=== PATIENT | female | born 1960 | race African-American/Black ===

== ENCOUNTER 2016-12-06 08:15 | Emergency (ER) | payer BC ==
[~2016-12-06] VITALS: Ht 170.2 cm; Wt 65.8 kg
[~2016-12-06 08:15] MED LIST: ASPIR 8181 MG ORAL; NORCO 5-325 TA1 EAC1 ORAL; SILVADENE CREAM50 GM TOP
--- NOTE | 2016-12-06 08:51 | Emergency Room Report ---
History of Present Illness General Chief Complaint: Pain Source: Patient, Medical Record Present Illness HPI The patient presents after slipping and falling on December 04 taking her mother home. She fell forward and landed on her right side. She also scraped the inside her for a left elbow. She feels pain in her knee and also in her elbow on the right-hand side. She's able to ambulate however she feels a clicking and some swelling medial side of her right knee. In addition to that she had some pain extending and pronating her hands in the elbow region. She took 2 Aleve at 7 PM last night. These have helped with the pain. Denies any numbness. Pain 7/10, worse when walking or using R hand. No other somatic complaints. Allergies: Coded Allergies: [place] (Verified Allergy, Mild, Hives, 12/11/12) PENICILLINS (Verified Allergy, Hives, 12/11/12) Patient History Past Medical History: see triage record Social History: Denies: smoking Social History Narrative bible study Reviewed Nursing Documentation: PMH: Agreed, PSxH: Agreed Nursing Documentation-PM Past Medical History: No History, Except For Hx Hypertension: Yes Review of Systems All Other Systems: negative except mentioned in HPI Physical Exam Vital Signs Date Time Temp Pulse Resp B/P Pulse Ox O2 Delivery O2 Flow Rate FiO2 12/06/16 08:19 98.2 92 16 151/90 98 Room Air Sp02 EP Interpretation: reviewed, normal General Appearance: well appearing, no apparent distress Head: normocephalic, atraumatic Eyes: bilateral eye PERRL, bilateral eye normal inspection ENT: hearing grossly normal, normal voice, moist mucus membranes Neck: full range of motion, supple, no bony tend Respiratory: chest non-tender, lungs clear, no respiratory distress, speaking full sentences Cardiovascular #1: regular rate, rhythm Cardiovascular #2: 2+ radial (R), 2+ radial (L), 2+ dorsalis pedis (R), 2+ dorsalis pedis (L) Gastrointestinal: normal bowel sounds, non tender Musculoskeletal: digits/nails normal, gait/station normal, normal range of motion, no calf tenderness, pelvis stable, other - tenderness radial head R, shoulder and wrist not tender. R knee with medial ligament laxity (minimal) small effusion, no drawer, Appies negative Neurologic: alert, motor strength/tone normal, sensory intact, cerebellar normal, other - distal neuro intact Psychiatric: mood/affect normal Skin: abrasions - L medial elbow Medical Decision Making Diagnostic Impression: Primary Impression: Contusion of right elbow Qualified Codes: S50.01XA - Contusion of right elbow, initial encounter Additional Impressions: Sprain of right knee Qualified Codes: S83.411A - Sprain of medial collateral ligament of right knee , initial encounter Abrasion ER Course Patient presents after falling. She has knee pain and elbow pain on the right- hand side. Differential includes fracture, sprain, strain, contusion. [place] ankle rules are against fracture, though will obtain x-rays due to clicking. The radial head this probably bruised however an x-ray will be obtained to exclude fracture. Motrin 600 mg be given for analgesia. Patient improved with treatment. Fede applied by RNs - rewrapped by me. Tension excellent and neurovasc normal. Patient stable for outpatient observation and treatment. Other X-Ray Diagnostic Results X-Ray ordered: knee (3) elbow (3) EP Interpretation: Yes Interpretation: no fractures, no dislocation, no soft tissue swelling, other - djd Indication: Pain Impression: No acute disease Interpreting ER Provider: Electronically signed by Gustavo Kevin MD Last Vital Signs Date Time Temp Pulse Resp B/P Pulse Ox O2 Delivery O2 Flow Rate FiO2 12/06/16 09:46 73 18 144/96 98 Room Air 12/06/16 09:46 97.3 Status: improved Disposition: HOME, SELF-CARE Condition: Improved Scripts Bacitracin (Bacitracin) 28.4 Gm Oint...g. 1 APPLIC TOPIC BID, #10 GM Prov: Gustavo Kevin M.D. 12/06/16 Hydrocodone Bit/Acetaminophen 5-325* (NORCO 5-325*) 1 Each Tablet 1 TAB ORAL Q6H Y for For Pain, #10 TAB 0 Refills Prov: Gustavo Kevin M.D. 12/06/16 Ibuprofen* (MOTRIN*) 600 Mg Tablet 600 MG ORAL Q6H Y for For Pain, #20 TAB Prov: Gustavo Kevin M.D. 12/06/16 Referrals: NON PHYSICIAN (PCP) Gustavo Kevin M.D. Dec 06, 2016 08:50
[2016-12-06] MEDS ORDERED: IBUPROFEN600 MG ORAL (09:19)
[2016-12-06] MEDS ORDERED: NORCO 5-325 TA1 EACH ORAL (09:19)
[2016-12-06] MEDS ORDERED: BACITRACIN15 GM TOPIC (09:21)
[2016-12-06] MEDS ORDERED: HYDROCHLOROTHIA25 MG ORAL (09:31)
[2016-12-06] MEDS ORDERED: LOSARTAN POTASS50 MG ORAL (09:31)
[2016-12-06 09:46] VITALS: BP 144/96
--- NOTE | 2016-12-06 10:57 | Diagnostic Imaging Report ---
Indication: Pain Findings: 3 views of the right elbow were obtained. No acute fractures, malalignment, erosions or periostitis are identified. Bone mineralization is within normal limits. Soft tissues are unremarkable. Some marginal spurs are noted. Impression: No acute injury. Mild osteoarthritis
--- NOTE | 2016-12-06 10:58 | Diagnostic Imaging Report ---
Indication: Pain 3 views of the right knee were obtained. Findings: No acute fracture, malalignment, or joint effusion are identified. Marginal spurs demonstrated. Some joint space narrowing is present. There maybe a small joint effusion. Impression: Osteoarthritis
== END 2016-12-06 09:40 | disposition home or self-care (01) ==
LOC: EMR 08:45
DX: S50.01XA Contusion of right elbow, initial encounter (principal); S83.91XA Sprain of unspecified site of right knee, initial encounter; S50.312A Abrasion of left elbow, initial encounter; W19.XXXA Unspecified fall, initial encounter; Y92.89 Other specified places as the place of occurrence of the external cause; I10 Essential (primary) hypertension; M19.021 Primary osteoarthritis, right elbow; M17.11 Unilateral primary osteoarthritis, right knee
CPT/HCPCS: 99284

== ENCOUNTER 2019-01-18 09:19 | Emergency (ER) | payer BC ==
[~2019-01-18] VITALS: Ht 170.2 cm; Wt 83.9 kg
[~2019-01-18 09:19] MED LIST changes: +BACITRACIN15 GM TOPIC; +HYDROCHLOROTHIA25 MG ORAL; +IBUPROFEN600 MG ORAL; +LOSARTAN POTASS50 MG ORAL; +NORCO 5-325 TA1 EACH ORAL
[2019-01-18 09:41] VITALS: BP 153/93
--- NOTE | 2019-01-18 09:42 | NUR ---
ED Nurse Note: pt walked in due to sore throat started this morning. pt stated she is drinking coffee and started to feel something was stucked. pt able to talk, denies dypsnea. pt able to drink water. will continue to monitor.
--- NOTE | 2019-01-18 09:51 | Emergency Room Report ---
History of Present Illness General Chief Complaint: Sore Throat Source: Patient Present Illness HPI Patient presents with complaints of discomfort to the right side of her throat Reports that after drinking coffee earlier today she felt a discomfort to the lower part of her throat Denies any headache Denies any cough denies any chest pain or shortness of breath denies any change in voice does not recall choking on any food particles Patient had also an egg sausage sandwich prior to drinking the coffee however does not recall any discomfort after eating the food At this time while drinking water reports that she feels somewhat improved and almost fully resolved Allergies: Coded Allergies: [place] (Verified Allergy, Mild, Hives, 12/11/12) [place] (Verified Allergy, Hives, 12/11/12) Patient History Past Medical History: see triage record Last Menstrual Period: no period Reviewed Nursing Documentation: PMH: Agreed; PSxH: Agreed Nursing Documentation-PMH Past Medical History: No Stated History Hx Hypertension: Yes Review of Systems All Other Systems: negative except mentioned in HPI Physical Exam Vital Signs Date Time Temp Pulse Resp B/P (MAP) Pulse Ox O2 Delivery O2 Flow Rate FiO2 01/18/19 09:27 98.2 96 21 153/93 (113) 96 Room Air Sp02 EP Interpretation: reviewed, normal General Appearance: well appearing, no apparent distress Head: normocephalic, atraumatic Eyes: bilateral eye PERRL, bilateral eye EOMI ENT: hearing grossly normal, normal pharynx, no angioedema, normal voice, TMs + canals normal, uvula midline Neck: full range of motion, supple, no meningismus, no bony tend Respiratory: lungs clear, normal breath sounds, no rhonchi, no respiratory distress, no retraction, no accessory muscle use Cardiovascular #1: normal peripheral pulses, regular rate, rhythm, no edema, no gallop, no JVD, no murmur Gastrointestinal: normal bowel sounds, non tender, soft, no mass, no organomegaly, non-distended, no guarding, no hernia, no pulsatile mass, no rebound Musculoskeletal: normal inspection Neurologic: oriented x3, responsive, thread grinder III-XII nml as tested, motor strength/ tone normal, sensory intact Psychiatric: mood/affect normal Skin: no rash Lymphatic: normal inspection, no adenopathy Medical Decision Making Diagnostic Impression: Primary Impression: Sore throat ER Course Multiple differentials including but not limited to soft tissue abrasion, retained foreign body Patient's exam is fairly benign however Voice is normal patient eating and drinking appropriately without any discomfort and patient has at this time stable for initial conservative outpatient trial Last Vital Signs Date Time Temp Pulse Resp B/P (MAP) Pulse Ox O2 Delivery O2 Flow Rate FiO2 01/18/19 09:41 98.2 96 21 153/93 96 Room Air Status: improved Disposition: HOME, SELF-CARE Condition: Improved Referrals: [facility]. [facility] Patient Instructions: Sore Throat Additional Instructions: Patient is provided with the discharge instructions notified to follow up with primary doctor in the next 2-3 days otherwise return to the er with any worsening symptoms. Please note that this report is being documented using [email or web address] technology. This can lead to erroneous entry secondary to incorrect interpretation by the dictating instrument. Liseth Concepcion DO Jan 18, 2019 09:51
[2019-01-18 10:00] VITALS: BP 142/90
--- NOTE | 2019-01-18 10:00 | NUR ---
ER DISCHARGE NOTE: Patient is cleared to be discharged per ERMD, pt is aox4, on room air, with stable vital signs. pt was given dc and prescription instructions, pt was able to verbalize understanding, pt id band removed without complications. pt is able to ambulate with steady gait. pt took all belongings.
== END 2019-01-18 10:00 | disposition home or self-care (01) ==
LOC: EMR 09:45
DX: R07.0 Pain in throat (principal); Z88.0 Allergy status to penicillin; I10 Essential (primary) hypertension; Z91.018 Allergy to other foods
CPT/HCPCS: 99282